=== PATIENT | female | born 1995 | race American Indian/Alaskan Native ===

== ENCOUNTER → 2020-04-28 14:30 | Outpatient (CLI) | payer OTHER, SELFPAY ==
--- NOTE | 2020-04-28 | DI.RAD.S_ITS ---
PROCEDURE: XR SHOULDER RT MIN 2V INDICATIONS: Right Shoulder Pain TECHNIQUE: 3 views of the shoulder were acquired. COMPARISON: [facility], CR, XR SHOULDER MIN 2VW RT, 05/09/2016, 18:59. FINDINGS: Bones: No fractures or dislocations. No suspicious bony lesions. Visualized ribs appear intact. Slight superior subluxation of the lateral clavicle relative to the acromion. No AC joint space widening. Soft tissues: No suspicious soft tissue calcifications. IMPRESSION: Chronic minimal superior subluxation of the lateral clavicle, relative to the acromion, unchanged since 05/09/16 If the patient's pain or other symptoms persist, consider further evaluation with MRI Dictated by: Dar Jo M.D. on 04/28/2020 at 15:34 Approved by: Dar Jo M.D. on 04/28/2020 at 15:36
== END ==
PROVIDERS: Referring Provider Family Medicine; Visit Provider Family Medicine
DX: M25.511 Pain in right shoulder (principal); M19.011 Primary osteoarthritis, right shoulder
CPT/HCPCS: 73030

== ENCOUNTER → 2020-05-20 11:58 | Outpatient (CLI) | payer OTHER, SELFPAY ==
--- NOTE | 2020-05-20 13:45 | DI.MRI.S_ITS ---
PROCEDURE: MR SHOULDER RT WO CON INDICATIONS: Pain in right shoulder TECHNIQUE: Noncontrast oblique coronal T2 fast spin echo with fat saturation, oblique sagittal T1 spin echo and T2 fast spin echo with fat saturation, axial T1 spin echo and T2 fast spin echo with fat saturation through the shoulder. COMPARISON: [facility], CR, XR SHOULDER RT MIN 2V, 04/28/2020, 14:31. FINDINGS: Image quality: Excellent. Rotator cuff: There is mild supraspinatus tendinosis. The infraspinatus and teres minor tendons are intact. The subscapularis tendon is intact. There is no significant atrophy of the rotator cuff musculature. No significant rotator cuff tendon tear is seen. Bones and bursae: No bone marrow contusions or fractures. No significant acromioclavicular joint degeneration is seen. There is slight inferior positioning of the acromion relative to the distal clavicle, which does not result in significant narrowing of the supraspinatus outlet. No pathologic subacromial-subdeltoid or subcoracoid bursal fluid is present. Capsule and soft tissues: Intermediate signal is seen at the base of the posterior labrum that could represent a possible nondisplaced tear, best seen on images 8-10 of axial series 6. No paralabral cyst is seen. The long head of the biceps tendon demonstrates normal location and morphology. The rotator interval appears normal, without fibrosis. The coracohumeral ligament is normal in thickness. IMPRESSION: 1. Questionable nondisplaced tear at the base of the posterior labrum. An MR arthrogram could be obtained for confirmation if indicated. 2. Mild supraspinatus tendinosis. No significant rotator cuff tendon tear is seen. Dictated by: Jerry Mcclain M.D. on 05/20/2020 at 13:02 Approved by: Jerry Mcclain M.D. on 05/20/2020 at 13:44
== END ==
PROVIDERS: Referring Provider Family Medicine; Visit Provider Family Medicine
DX: M25.511 Pain in right shoulder (principal); G89.29 Other chronic pain
CPT/HCPCS: 73221